=== PATIENT | female | born 1980 | race African-American/Black ===

== ENCOUNTER 2019-07-16 08:10 | Emergency (ER) | payer OTHER ==
[~2019-07-16] VITALS: Ht 170.2 cm; Wt 87.1 kg
[2019-07-16] MEDS ORDERED: PRENTAB53 PO (08:19)
[2019-07-16 09:02] LABS: BASO % 0.5 % (0.0-1.0); EOS # 0.1 10^3/uL (0.0-0.5); EOS % 1.2 % (0.0-3.0); HEMATOCRIT 36.8 % (36.0-47.0); HEMOGLOBIN 12.1 g/dl (12.0-15.5); LYMPH # 2.2 10^3/uL (1.5-5.0); MEAN CORPUSCULAR HEMOGLOBIN 30.4 pg (27.0-33.0); MEAN CORPUSCULAR HGB CONC 32.9 g/dl (32.0-36.5); MEAN CORPUSCULAR VOLUME 92.5 fl (80.0-96.0); MONO # 0.6 10^3/uL (0.0-0.8); MONO % 7.6 % (0.0-5.0); NEUTROPHILS # 4.7 10^3/uL (1.5-8.5); NEUTROPHILS % 61.4 % (36.0-66.0); PLATELET COUNT, AUTOMATED 301 10^3/uL (150-450); RED BLOOD COUNT 3.98 10^6/uL (4.00-5.40); WHITE BLOOD COUNT 7.7 10^3/uL (4.0-10.0)
[2019-07-16 09:22] LABS: BLOOD UREA NITROGEN 9 MG/DL (7-18); CALCIUM LEVEL 8.9 MG/DL (8.5-10.1); CARBON DIOXIDE LEVEL 26 MEQ/L (21-32); CHLORIDE LEVEL 109 MEQ/L (98-107); GLOMERULAR FILTRATION RATE > 60.0 (>60); GLUCOSE, FASTING 93 MG/DL (70-100); POTASSIUM SERUM 4.3 MEQ/L (3.5-5.1); SODIUM LEVEL 140 MEQ/L (136-145)
[2019-07-16 09:24] LABS: HCG, SERUM QUALITATIVE POSITIVE (NEGATIVE)
[2019-07-16 10:01] LABS: HCG, SERUM QUANTITATIVE 4529 MIU/ML
--- NOTE | 2019-07-16 10:33 | REP ---
OBSTETRIC SONOGRAPHY: HISTORY: Left lower quadrant pain. FINDINGS: Transabdominal scanning is performed. Uterus is mildly enlarged measuring 9.5 x 5.8 x 5.5 cm. No intrauterine gestation is seen. There is a left adnexal ectopic gestation sac. This contains a 4 mm embryonic pole with heart rate recorded at 122 beats per minute. This is compatible with a living left adnexal ectopic . There is a 2.1 cm cyst in the maternal left ovary consistent with a corpus luteum. No cul-de-sac fluid seen. IMPRESSION: Living left adnexal ectopic gestation 4 mm embryonic pole, 8-sijb-0-day gestational age estimate. No free fluid. No intrauterine gestation. Electronically Signed by Max Schreiber MD 07/16/2019 11:31 A
[2019-07-16] MEDS ORDERED: METHOTREXATE 50MG/2ML VIAL (J9260 PER 50MG) IM ONE (12:30)
--- NOTE | 2019-07-16 12:33 | IPNPDOC ---
Text Note Date of Service The patient was seen on 07/16/19. NOTE patient is a 39 yo with 6+1wks ectopic . patient presented to ED with concern for new onset llq pain. pelvic US shows left adnexa ectopic as below. patient reports her pain had subsided and she is pain free at this time. Paitent desires fertility gynhx: denies h/o gc/ct ob: X 2, ectopic x 1 with unialteral salpingectomy PMhx: denies PShx: lapaoscopic unilateral salpingectomy med: pnv all:nkda social: 10pkyr, denies etoh/illicit rx vitals: normal NAD CTA s w/r/r s1s2 s m/g/c abd: nd, soft, nt formal US: ectopic on left adnexa, crl: 0.4cm (6+1wks), HR: 122 HC a/p patient with ectopic . Discussed with patient my concern for ruptured ectopic causing internal bleeding that can be life threatening. Recommend laparoscopic surgery to remove ectopic . risks of surgery explained to include removal of affected fallopian tube. This means patient will need to get IVF or adopt if she desires to have additional children. Patient expresses she does not want to lose her fertility. Discussed option of methotrexate to chemically terminate . Discussed with patient she has a higher chance of methotrexate not working and she would end up having surgery. Also risk of ruptured ectopic while waiting for medication to work which will result in an emergent surgery and this can be life threatening. Explained to patient risks of taking medication and hand out provided. patient given instructions to get labs on and Jul. appointment for f/u in clinic on @ [phone] Connelly given. Strict return precautions (increased pain, dizziness) given. bsa 2. 100mg mtx IM ordered. DO Matilda VS,Ilyabone, I+O VS, Fishbone, I+O Laboratory Tests 07/16/19 08:49 Vital Signs Date Time Temp Pulse Resp B/P (MAP) Pulse Ox O2 Delivery O2 Flow Rate FiO2 07/16/19 11:08 98.1 61 16 105/59 (74) [address] DO Jul 16, 2019 12:33
[2019-07-16 14:22] VITALS: BP 106/62
== END 2019-07-16 15:05 | disposition home or self-care (01) ==
LOC: M ED 08:10
DX: O00.90 Unspecified ectopic pregnancy without intrauterine pregnancy (principal); Z32.01 Encounter for pregnancy test, result positive; R10.2 Pelvic and perineal pain; O09.521 Supervision of elderly multigravida, first trimester; Z87.59 Personal history of other complications of pregnancy, childbirth and the puerperium; Z87.442 Personal history of urinary calculi; O99.331 Smoking (tobacco) complicating pregnancy, first trimester; Z3A.01 Less than 8 weeks gestation of pregnancy; N83.292 Other ovarian cyst, left side; Z79.899 Other long term (current) drug therapy
CPT/HCPCS: 36415; 76801; 80048; 81001; 84702; 84703; 85025; 86850; 86900; 86901; 93976; 96372; 99284; J9260

== ENCOUNTER → 2019-07-22 | Outpatient (CLI) | payer OTHER ==
[~2019-07-22] MED LIST: PRENTAB53 PO
== END ==
LOC: M LAB 11:55
PROVIDERS: ATTEND Obstetrics & Gynecology
DX: O00.90 Unspecified ectopic pregnancy without intrauterine pregnancy (principal)

== ENCOUNTER → 2019-07-25 | Outpatient (CLI) | payer OTHER | LOC: M LAB 12:22 | PROVIDERS: ATTEND Obstetrics & Gynecology | DX: O00.90 Unspecified ectopic pregnancy without intrauterine pregnancy (principal) ==

== ENCOUNTER → 2019-07-28 | Outpatient (CLI) | payer OTHER | LOC: M LAB 12:15 | PROVIDERS: ATTEND Obstetrics & Gynecology | DX: O02.81 Inappropriate change in quantitative human chorionic gonadotropin (hCG) in early pregnancy (principal) ==

== ENCOUNTER 2020-01-22 14:22 | Emergency (ER) | payer OTHER ==
[~2020-01-22] VITALS: Ht 172.7 cm; Wt 91.4 kg
[2020-01-22] MEDS ORDERED: NS 1,000 ML IV ONE (16:15)
[2020-01-22 16:33] LABS: BASO # 0.1 10^3/uL (0.0-0.2); BASO % 0.8 % (0.0-1.0); EOS # 0.2 10^3/uL (0.0-0.5); EOS % 3.1 % (0.0-3.0); HEMATOCRIT 39.8 % (36.0-47.0); HEMOGLOBIN 13.3 g/dl (12.0-15.5); LYMPH # 2.9 10^3/uL (1.5-5.0); LYMPH % 37.9 % (24.0-44.0); MEAN CORPUSCULAR HEMOGLOBIN 31.4 pg (27.0-33.0); MEAN CORPUSCULAR HGB CONC 33.4 g/dl (32.0-36.5); MEAN CORPUSCULAR VOLUME 93.9 fl (80.0-96.0); MONO # 0.6 10^3/uL (0.0-0.8); MONO % 7.6 % (0.0-5.0); NEUTROPHILS # 3.8 10^3/uL (1.5-8.5); NEUTROPHILS % 50.5 % (36.0-66.0); PLATELET COUNT, AUTOMATED 309 10^3/uL (150-450); RED BLOOD COUNT 4.24 10^6/uL (4.00-5.40); WHITE BLOOD COUNT 7.5 10^3/uL (4.0-10.0)
[2020-01-22 16:47] LABS: HCG, SERUM QUALITATIVE NEGATIVE (NEGATIVE)
[2020-01-22 16:49] LABS: ALBUMIN 3.8 GM/DL (3.2-5.2); ALT/SGPT 19 U/L (12-78); BILIRUBIN,DIRECT 0.1 MG/DL (0.0-0.2); BILIRUBIN,TOTAL 0.6 MG/DL (0.2-1.0); BLOOD UREA NITROGEN 9 MG/DL (7-18); CALCIUM LEVEL 8.5 MG/DL (8.5-10.1); CARBON DIOXIDE LEVEL 28 MEQ/L (21-32); CHLORIDE LEVEL 108 MEQ/L (98-107); CREATININE FOR GFR 0.67 MG/DL (0.55-1.30); GLOMERULAR FILTRATION RATE > 60.0 (>60); GLUCOSE, FASTING 91 MG/DL (70-100); LIPASE 65 U/L (73-393); POTASSIUM SERUM 3.9 MEQ/L (3.5-5.1); SODIUM LEVEL 140 MEQ/L (136-145); TOTAL PROTEIN 7.2 GM/DL (6.4-8.2)
--- NOTE | 2020-01-22 17:22 | REPVR ---
PROCEDURE INFORMATION: Exam: CT Abdomen And Pelvis Without Contrast Exam date and time: 01/22/2020 5:06 PM Age: 39 years old Clinical indication: Abdominal pain; Flank; Left; Additional info: L flank pain, h/o stones TECHNIQUE: Imaging protocol: Computed tomography of the abdomen and pelvis without contrast. Radiation optimization: All CT scans at this facility use at least one of these dose optimization techniques: automated exposure control; mA and/or kV adjustment per patient size (includes targeted exams where dose is matched to clinical indication); or iterative reconstruction. COMPARISON: No relevant prior studies available. FINDINGS: Liver: The liver is normal. Gallbladder and bile ducts: The gallbladder is contracted but otherwise normal. Pancreas: The pancreas is normal. Spleen: The spleen is normal. Adrenals: The adrenal glands are normal. Kidneys and ureters: There is a 2 mm nonobstructive left renal calculus. No right renal calculus. No hydronephrosis. No ureteral calculus or hydroureter. Stomach and bowel: Unremarkable. No obstruction. No mucosal thickening. Appendix: The appendix is normal. Intraperitoneal space: There is minimal free fluid within the right side of the pelvis not unusual for age and gender. No fluid collection. No free air. Vasculature: Unremarkable. No abdominal aortic aneurysm. Lymph nodes: Unremarkable. No enlarged lymph nodes. Bladder: The bladder is normal with no evidence of calculi. Reproductive: Unremarkable as visualized. Bones/joints: There are degenerative changes of the lumbar spine most severe at L4-L5 and L5-S1 with disc disease and degenerative changes resulting in moderate spinal stenosis at L4-L5 and severe foraminal stenosis at L5-S1. No fracture or focal osseous lesion. Soft tissues: Unremarkable. IMPRESSION: 1. 2 mm nonobstructive left renal calculus. No obstructive calculus. 2. No acute findings. Electronically signed by: Roc Nolasco On 01/22/2020 17:22:52 PM
[2020-01-22] MEDS ORDERED: NORC1TAB7 PO ×2 (17:52→17:59)
[2020-01-22] MEDS ORDERED: ONDA4TAB6 PO (17:52)
[2020-01-22 18:00] VITALS: BP 114/68
== END 2020-01-22 18:09 | disposition home or self-care (01) ==
LOC: M ED 14:22
DX: N20.0 Calculus of kidney (principal); N23 Unspecified renal colic; Z87.442 Personal history of urinary calculi; F17.200 Nicotine dependence, unspecified, uncomplicated

== ENCOUNTER → 2020-12-24 | Outpatient (CLI) | payer SELFPAY ==
[~2020-12-24] MED LIST changes: +NORC1TAB7 PO; +ONDA4TAB6 PO
== END ==
LOC: M LABSMTC 09:41
PROVIDERS: ATTEND Pediatrics
DX: Z20.822 Contact with and (suspected) exposure to COVID-19 (principal)